=== PATIENT | female | born 1950 | race Caucasian/White ===

== ENCOUNTER 2017-11-29 07:15 | Inpatient (IN) | payer MEDICARE, OTHER ==
[~2017-11-29] VITALS: Ht 170.2 cm; Wt 165.1 kg
[2017-11-29 07:15] VITALS: BP 111/58
[2017-11-29 08:15] LABS: ABSOLUTE BASOPHILS 0.1 thou/uL (0.0-0.2); ABSOLUTE EOSINOPHILS 0.1 thou/uL (0.0-0.7); ABSOLUTE LYMPHOCYTES 6.7 thou/uL (0.8-5.3); ABSOLUTE MONOCYTES 1.8 thou/uL (0.0-1.2); ABSOLUTE NEUTROPHILS 4.7 thou/uL (1.6-8.1); BASOPHILS 0.8 %; EOSINOPHILS 0.9 %; HEMATOCRIT 39.9 % (37.0-47.0); HEMOGLOBIN 12.8 gm/dL (12.0-15.0); LYMPHOCYTES 50.2 %; MCH 31.6 pg (26.0-34.0); MCHC 32.1 g/dL (28.0-37.0); MCV 98.4 fL (80.0-100.0); MONOCYTES 13.1 %; MPV 10.2 fl. (7.2-11.1); NUCLEATED RBCS 0 /100WBC; PLATELET COUNT* 292 thou/uL (150-400); RBC 4.06 mil/uL (4.20-5.00); RDW-CV 14.9 % (10.5-14.5); WBC 13.4 thou/uL (4.0-11.0)
[2017-11-29 08:23] LABS: ANION GAP 3 mmol/L (7-16); BUN 11 mg/dL (7-18); CALCIUM 8.5 mg/dL (8.5-10.1); CHLORIDE 100 mmol/L (98-107); CO2 32 mmol/L (21-32); CREATININE 0.8 mg/dL (0.6-1.3); GLUCOSE 118 mg/dL (70-99); POTASSIUM 3.8 mmol/L (3.5-5.1); SODIUM 135 mmol/L (136-145)
[2017-11-29 08:35] LABS: ALBUMIN 2.8 g/dL (3.4-5.0); ALKALINE PHOSPHATASE 80 U/L (46-116); NT-PRO BRAIN NAT PEPTIDE 403 pg/mL (<300); SGOT 29 U/L (15-37); SGPT 20 U/L (30-65); TOTAL BILIRUBIN 0.2 mg/dL (<0.1-1.0); TOTAL PROTEIN 7.4 g/dL (6.4-8.2); TROPONIN-I LEVEL <0.06 ng/mL (<0.06)
--- NOTE | 2017-11-29 11:55 | EKG ---
[place] [address] ELECTROCARDIOGRAM REPORT Name: RUBI GILLIAM Room: [place] [address] ADM IN .R.#: [id number] Admission: 11/29/17 Attend Phys: Nikolai Paul MD Discharge: Date of : 54 Report #: [id number] THIS REPORT FOR: //name// [facility] ED Test Date: 2017-11-29 Test Time: 07:30:21 Pat Name: RUBI GILLIAM Department: Room: [facility] Gender: F Electrical Solderer: DUY : 1950 Requested By: Guillaume Brennan Order Number: [id number] MD: Lazarus Aparicio Measurements Intervals [place] Rate: 94 P: 42 MD: 204 QRS: -39 QRSD: 142 T: 86 QT: 388 QTc: 486 Interpretive Statements Sinus rhythm Left bundle branch block Baseline wander in lead(s) I,II,aVR,aVL No previous ECG available for comparison Electronically Signed On 11-29-2017 11:55:50 DATA ENTRY MACHINE OPERATOR by Lazarus Aparicio [email or web address] <ELECTRONICALLY SIGNED> By: Lazarus Aparicio MD, [facility] 11/29/17 1155 0730 Lazarus Aparicio MD, [facility] /EPI
[2017-11-29 12:00] VITALS: BP 106/44
[2017-11-29 13:25] VITALS: BP 115/42
[2017-11-29] MEDS ORDERED: VALIUM5 MG PO (15:48)
[2017-11-29] MEDS ORDERED: SYNTHROID100 MC1 PO (15:48)
[2017-11-29] MEDS ORDERED: SORINE 80 MG TA80 M1 PO (15:49)
[2017-11-29] MEDS ORDERED: NEURONTIN600 MG PO (15:49)
[2017-11-29] MEDS ORDERED: VERTICALM25 MG PO (15:49)
[2017-11-29] MEDS ORDERED: GLIPIZIDE ER2.5 MG PO (15:50)
[2017-11-29] MEDS ORDERED: LASIX 40 MG TAB40 M2 PO (15:50)
[2017-11-29] MEDS ORDERED: PROZAC20 MG PO (15:50)
[2017-11-29 16:13] LABS: HCO3 32.5 mmol/L (22.0-26.0); PO2 76.2 mmHg (75.0-100.0)
[2017-11-29 16:16] LABS: pH 7.297 (7.340-7.450)
[2017-11-29 16:17] LABS: PCO2 68.1 mmHg (35.0-45.0)
[2017-11-29 16:27] LABS: INFLUENZA A ANTIGEN None Detected (None Detect); INFLUENZA B ANTIGEN None Detected (None Detect)
[2017-11-30] VITALS: BP 106/58
[2017-11-30 04:46] LABS: ABSOLUTE LYMPHOCYTES 2.7 thou/uL (0.8-5.3); ABSOLUTE MONOCYTES 0.4 thou/uL (0.0-1.2); ABSOLUTE NEUTROPHILS 2.9 thou/uL (1.6-8.1); BASOPHILS 0.3 %; HEMATOCRIT 39.7 % (37.0-47.0); HEMOGLOBIN 12.5 gm/dL (12.0-15.0); LYMPHOCYTES 45.3 %; MCH 31.6 pg (26.0-34.0); MCHC 31.6 g/dL (28.0-37.0); MCV 100.1 fL (80.0-100.0); MONOCYTES 6.2 %; MPV 10.5 fl. (7.2-11.1); NUCLEATED RBCS 0 /100WBC; PLATELET COUNT* 283 thou/uL (150-400); POLYS 48.2 %; RBC 3.96 mil/uL (4.20-5.00); RDW-CV 15.1 % (10.5-14.5)
[2017-11-30 04:59] LABS: CALCIUM 8.7 mg/dL (8.5-10.1); CREATININE 0.8 mg/dL (0.6-1.3); POTASSIUM 4.6 mmol/L (3.5-5.1)
[2017-11-30 08:10] VITALS: BP 102/42
--- NOTE | 2017-11-30 11:08 | CON ---
[facility] [address] [place] [address] CONSULTATION Name: RUBI GILLIAM Radha Room: [address] IN M.R.#: [id number] Admission: 11/29/17 Attend Phys: Nikolai Paul MD Discharge: Date of : 54 Report #: [id number] THIS REPORT FOR: //name// CC: Nikolai Paul FAM unknown [facility] FAMCLI DATE OF SERVICE: 11/29/2017 REQUESTING PHYSICIAN: Nikolai Paul M.D. REASON FOR CONSULTATION: Chronic obstructive pulmonary disease exacerbation and infiltrates. DISCUSSION: The patient is a 67-year-old woman who has a history of underlying asthma/chronic obstructive pulmonary disease. She is a former smoker, quitting about 20 years ago. She is O2, though not steroid dependent. She became ill last weekend. Developed some upper airway congestion, notes she felt like she had a mild cold. Really was not too bad. Over the last couple of days she began getting more short of breath. She did try to tough it out. However, she got so bad she came to the Emergency Department this morning. She did require placement on BiPAP in the Emergency Department. She was subsequently transferred up to the floor. She was transitioned over to high flow nasal cannula. She has had her flu shot for the season. She has not seen a or director in a long time. She does have a nebulizer at home with albuterol. She is intermittent on how she uses that. She notes she has other inhalers at home, though she does not use any of them consistently. She cannot tell me what the names are. She denies being on montelukast. She also has a history of obstructive sleep apnea. She does have a CPAP that she sleeps with and bleeds in oxygen. She did not bring it to the hospital with her. She has had no prior history of thromboembolic disease. She does have a history of coronary artery disease, did have an myocardial infarction over 20 years ago. She believes she had angioplasty done. She had lived in this area, then lived out in [place] for quite some time. Several years ago she did relocate to this area. She has actually been getting most of her care at [facility]. She lives with a friend and does note that her friend and significant other had developed some upper airway congestion and some cough. Otherwise, she typically does not get out much and is not around the general public much. PAST MEDICAL HISTORY: Also remarkable for morbid obesity. She has had prior hysterectomy done for endometriosis. She has a history of asthma/chronic obstructive pulmonary disease, obstructive sleep apnea, morbid obesity, [place] [address] CONSULTATION Name: RUBI GILLIAM Radha Room: [address] IN ..#: [id number] Admission: 11/29/17 Attend Phys: Nikolai Paul MD Discharge: Date of : 54 Report #: [id number] disease (was told from a stress test done several years ago, but that was unremarkable). She has had bilateral total knee replacements. She does note on the left side, she had sustained a fall and also fractured her femur requiring a plate placed. That was done at . MEDICATIONS: At this time, cannot elicit exactly what her home medications are. The nurse will be calling the pharmacy to get an accurate rendition of those medications. SOCIAL HISTORY: Former smoker as noted. FAMILY HISTORY: Denies history of lung disease or thromboembolic disease. REVIEW OF SYSTEMS: No positives above. She is not physically very active. She does have issues with neuropathy in lower extremities. She has not had any nausea, vomiting or diarrhea. No skin rashes. No actual chest pain. Some cough. PHYSICAL EXAMINATION: GENERAL APPEARANCE: A morbidly obese woman. She is seen resting in bed on high flow nasal cannula. O2 saturations are in the 90s. She is alert, conversant, able to speak in full sentences. HEENT: Head is normocephalic and atraumatic. Sclerae are nonicteric. Mucous membranes look moist. NECK: Large, but negative for any definite adenopathy. HEART: Regular rate. Tones are distant. Does appear mildly tachycardic. No S3 is appreciated. LUNGS: Show breath sounds to be markedly diminished with a prolonged expiratory phase. Does have a few crackles heard. Few expiratory wheezes heard. ABDOMEN: Very obese, but soft. No hepatosplenomegaly is noted. EXTREMITIES: Do reveal 1-2+ edema. Healed scars over her knees bilaterally. She does have healing lesion seen, left pretibial area. Has some mild erythema noted pretibial areas bilaterally, left greater than right. Pulses are present, but diminished. SKIN: Warm and dry. Turgor is fair. NEUROLOGIC: She is alert and oriented x 3. Moving all extremities. LABORATORY AND X-RAY FINDINGS: On her chemistry, her sodium is 135, BUN 11, creatinine 0.8. Potassium is 3.8. ProBNP is 403. Troponins are unremarkable. Albumin 2.8. White blood cell count 13,400, hemoglobin 12.8, hematocrit 39.9, platelets were normal. No blood gases were done. Blood cultures have been sent. Chest x-ray was reviewed. She also had a CT angiogram done of her chest. Some of the views are degraded on the CT angiogram due to motion artifact and her size. No definite pulmonary emboli are seen. She does have mild bilateral [facility] [address] [place] [address] CONSULTATION Name: RUBI GILLIAM Room: [address] IN .R.#: [id number] Admission: 11/29/17 Attend Phys: Nikolai Paul MD Discharge: Date of : 54 Report #: [id number] infiltrates seen. No pleural effusions. Does not appear to have any definite masses noted. IMPRESSION: 1. Acute respiratory failure superimposed on chronic respiratory failure. She has been primarily hypoxic. 2. Interstitial infiltrates. Suspect may have a viral pneumonitis. Could also have an atypical pneumonia. 3. Asthma/chronic obstructive pulmonary disease exacerbation. 4. Morbid obesity. 5. Obstructive sleep apnea, is on CPAP and O2 at home. 6. History of coronary artery disease. RECOMMENDATIONS: 1. Need respiratory viral panel. 2. Continue IV steroids, neb treatments. 3. Agree with Rocephin and azithromycin. 4. We will also check urine for legionella and Strep pneumoniae antigen. 5. Repeat chest x-ray in several days. 6. She will continue to use her home CPAP if someone can bring it in. Otherwise, will utilize hospital BiPAP at night while sleeping and p.r.n. during the day, increased work of breathing. <ELECTRONICALLY SIGNED> By: Lei Woo MD 11/30/17 1108 1257 [id number] Mehta, /martinez
--- NOTE | 2017-11-30 15:29 | 2DMMODE ---
[place] [address] 2 D/M-MODE ECHOCARDIOGRAM Name: RONNIISATURUBI N Room: [address] IN [facility]#: [id number] Admission: 11/29/17 Attend Phys: Nikolai Paul, Discharge: Date of : 54 Date of Service: 11/30/17 1528 Report #: [id number] THIS REPORT FOR: //name// APPROVED REPORT Study performed: 11/30/2017 11:47:45 EXAM: Comprehensive 2D, Doppler, and color-flow Echocardiogram Patient Location: In-Patient Room #: 310 Status: routine BSA: 2.61 HR: 56 bpm BP: 106/58 mmHg Rhythm: NSR Other Information Study Quality: Good Indications Dyspnea Echo Enhancing Agent Indication: Endocardial border delineation Agent(s) / Amount(s) Used: Optison 3 cc 2D Dimensions LVEF(%): 64.36 (>50%) IVSd: 13.20 (7-11mm) LVOT Diam: 21.71 (18-24mm) LVDd: 52.56 mm PWd: 13.97 (7-11mm) Ascending Ao: 28.25 (22-36mm) LVDs: 33.97 (25-40mm) Aortic Root: 27.02 mm Gu's LVEF: 64.36 % Aortic Valve AoV Peak Malik.: 1.77 m/s AO Peak Gr.: 12.56 mmHg LVOT Max P.50 mmHg AO Mean Gr.: 7.96 mmHg LVOT Mean P.18 mmHg LVOT Max V: 1.37 m/s AO V2 VTI: 40.81 cm LVOT Mean V: 0.96 m/s JUDIE (VTI): 3.04 cm2 LVOT V1 VTI: 33.53 cm Mitral Valve E/A Ratio: 1.04 [place] [address] 2 D/M-MODE ECHOCARDIOGRAM Name: RUBI GILLIAM Room: [address]#: [id number] Admission: 11/29/17 Attend Phys: Nikolai Paul, Discharge: Date of : 54 Date of Service: 11/30/17 1528 Report #: [id number] MV Decel. Time: 248.63 ms MV E Max Malik.: 1.18 m/s MV PHT: 72.10 ms MVA (PHT): 3.05 cm2 TDI E/Lateral E': 13.11 E/Medial E': 13.11 Medial E' Malik.: 0.09 m/s Lateral E' Malik.: 0.09 m/s Pulmonary Valve PV Peak Malik.: 1.19 m/s PV Peak Gr.: 5.65 mmHg Tricuspid Valve TR Peak Gr.: 32.16 mmHg RVSP: 37.00 mmHg Left Ventricle The left ventricle is normal size. There is normal LV segmental wall motion. Mild concentric left ventricular hypertrophy. Left ventricular systolic function is normal. LVEF is 55-60%. Transmitral Doppler flow pattern suggests restrictive physiology. Right Ventricle The right ventricle is normal size. The right ventricular systolic function is normal. Atria The left atrium size is normal. The right atrium size is normal. Aortic Valve The aortic valve is normal in structure. No aortic regurgitation is present. There is no aortic valvular stenosis. Mitral Valve There is mitral annular calcification. Trace mitral regurgitation. No evidence of mitral valve stenosis. Tricuspid Valve The tricuspid valve is normal in structure. Trace tricuspid regurgitation. The RVSP is 50 mmHg. Pulmonic Valve The pulmonary valve is normal in structure. There is no pulmonic [place] [address] 2 D/M-MODE ECHOCARDIOGRAM Name: RUBI GILLIAM Room: [address] IN [facility]#: [id number] Admission: 11/29/17 Attend Phys: Nikolai Paul, Discharge: Date of : 54 Date of Service: 11/30/17 1528 Report #: [id number] Great Vessels The aortic root is normal in size. IVC is dilated and collapses <50% with inspiration. Pericardium There is no pericardial effusion. <Conclusion> The left ventricle is normal size. Mild concentric left ventricular hypertrophy. Left ventricular systolic function is normal. LVEF is 55-60%. Transmitral Doppler flow pattern suggests restrictive physiology. There is mitral annular calcification. Trace mitral regurgitation. Trace tricuspid regurgitation. The RVSP is 50 mmHg. IVC is dilated and collapses <50% with inspiration. <ELECTRONICALLY SIGNED> By: Rafal Lo MD, FACC 11/30/17 1528 1528 1528 Rafal Lo MD, FACC /INF
[2017-11-30 17:24] VITALS: BP 117/55
[2017-11-30 20:30] VITALS: BP 140/48
[2017-12-01 04:48] LABS: ABSOLUTE MONOCYTES 0.4 thou/uL (0.0-1.2); ABSOLUTE NEUTROPHILS 5.2 thou/uL (1.6-8.1); BASOPHILS 0.3 %; HEMATOCRIT 39.6 % (37.0-47.0); HEMOGLOBIN 12.5 gm/dL (12.0-15.0); LYMPHOCYTES 26.4 %; MCH 31.3 pg (26.0-34.0); MCHC 31.6 g/dL (28.0-37.0); MONOCYTES 4.8 %; MPV 10.4 fl. (7.2-11.1); NUCLEATED RBCS 0 /100WBC; PLATELET COUNT* 300 thou/uL (150-400); POLYS 68.5 %; WBC 7.5 thou/uL (4.0-11.0)
[2017-12-01 05:07] LABS: ALBUMIN 2.7 g/dL (3.4-5.0); CALCIUM 8.6 mg/dL (8.5-10.1); CREATININE 0.9 mg/dL (0.6-1.3); POTASSIUM 4.1 mmol/L (3.5-5.1); TOTAL BILIRUBIN 0.2 mg/dL (<0.1-1.0); TOTAL PROTEIN 7.2 g/dL (6.4-8.2)
[2017-12-01 08:13] VITALS: BP 121/57
[2017-12-01 15:40] VITALS: BP 124/71
[2017-12-01 20:50] VITALS: BP 109/65
[2017-12-02 04:43] LABS: ABSOLUTE LYMPHOCYTES 1.9 thou/uL (0.8-5.3); ABSOLUTE MONOCYTES 0.5 thou/uL (0.0-1.2); BASOPHILS 0.1 %; HEMATOCRIT 39.7 % (37.0-47.0); HEMOGLOBIN 12.7 gm/dL (12.0-15.0); LYMPHOCYTES 25.4 %; MCH 31.7 pg (26.0-34.0); MCHC 32.1 g/dL (28.0-37.0); MCV 98.8 fL (80.0-100.0); MONOCYTES 6.6 %; MPV 10.5 fl. (7.2-11.1); NUCLEATED RBCS 0 /100WBC; PLATELET COUNT* 307 thou/uL (150-400); POLYS 67.9 %; RBC 4.02 mil/uL (4.20-5.00); RDW-CV 14.9 % (10.5-14.5); WBC 7.4 thou/uL (4.0-11.0)
[2017-12-02 05:02] LABS: PREALBUMIN 20.7 mg/dL (18.0-35.7)
[2017-12-02 05:07] LABS: ALBUMIN 2.7 g/dL (3.4-5.0); CALCIUM 8.2 mg/dL (8.5-10.1); CREATININE 0.9 mg/dL (0.6-1.3); POTASSIUM 3.9 mmol/L (3.5-5.1); TOTAL BILIRUBIN 0.3 mg/dL (<0.1-1.0)
[2017-12-02 07:35] VITALS: BP 126/45
[2017-12-02 19:00] VITALS: BP 148/84
[2017-12-02 20:10] VITALS: BP 112/40
[2017-12-03 02:06] LABS: ADENOVIRUS Negative (Negative); INFLUENZA A Positive (Negative); INFLUENZA B Negative (Negative); METAPNEUMOVIRUS Negative (Negative); PARAINFLUENZA 1 Negative (Negative); PARAINFLUENZA 2 Negative (Negative); PARAINFLUENZA 3 Negative (Negative); RHINOVIRUS Negative (Negative); RSV A Negative (Negative); RSV B Negative (Negative)
[2017-12-03 04:20] LABS: CALCIUM 8.3 mg/dL (8.5-10.1); CREATININE 0.8 mg/dL (0.6-1.3); POTASSIUM 3.7 mmol/L (3.5-5.1)
[2017-12-03 07:35] VITALS: BP 142/68
[2017-12-03 17:00] VITALS: BP 129/43
[2017-12-04] VITALS: BP 89/35
[2017-12-04 04:00] VITALS: BP 118/42
[2017-12-04 04:42] LABS: ANION GAP < 0 mmol/L (7-16); BUN 24 mg/dL (7-18); CALCIUM 8.5 mg/dL (8.5-10.1); CHLORIDE 102 mmol/L (98-107); CO2 41 mmol/L (21-32); CREATININE 0.9 mg/dL (0.6-1.3); GLUCOSE 169 mg/dL (70-99); POTASSIUM 4.5 mmol/L (3.5-5.1); SODIUM 141 mmol/L (136-145)
[2017-12-04 05:08] LABS: ANION GAP < 0 mmol/L (7-16); BUN 24 mg/dL (7-18); CALCIUM 8.5 mg/dL (8.5-10.1); CHLORIDE 102 mmol/L (98-107); CO2 41 mmol/L (21-32); CREATININE 0.9 mg/dL (0.6-1.3); GLUCOSE 169 mg/dL (70-99); POTASSIUM 4.5 mmol/L (3.5-5.1); SODIUM 141 mmol/L (136-145)
[2017-12-04 10:42] VITALS: BP 117/54
[2017-12-04 16:00] VITALS: BP 108/30
[2017-12-04 20:00] VITALS: BP 105/54
[2017-12-05 04:50] LABS: ALBUMIN 2.5 g/dL (3.4-5.0); ALKALINE PHOSPHATASE 56 U/L (46-116); ANION GAP < 0 mmol/L (7-16); BUN 28 mg/dL (7-18); CALCIUM 8.6 mg/dL (8.5-10.1); CHLORIDE 98 mmol/L (98-107); CO2 41 mmol/L (21-32); CREATININE 0.9 mg/dL (0.6-1.3); GLUCOSE 230 mg/dL (70-99); POTASSIUM 4.2 mmol/L (3.5-5.1); SGOT 24 U/L (15-37); SGPT 46 U/L (30-65); SODIUM 138 mmol/L (136-145); TOTAL BILIRUBIN 0.5 mg/dL (<0.1-1.0); TOTAL PROTEIN 6.4 g/dL (6.4-8.2)
[2017-12-05 04:59] LABS: ABSOLUTE LYMPHOCYTES 1.5 thou/uL (0.8-5.3); ABSOLUTE MONOCYTES 0.4 thou/uL (0.0-1.2); ABSOLUTE NEUTROPHILS 8.2 thou/uL (1.6-8.1); HEMATOCRIT 39.6 % (37.0-47.0); HEMOGLOBIN 12.7 gm/dL (12.0-15.0); MCHC 32.1 g/dL (28.0-37.0); MCV 96.9 fL (80.0-100.0); MONOCYTES 4.3 %; MPV 10.5 fl. (7.2-11.1); NUCLEATED RBCS 0 /100WBC; PLATELET COUNT* 361 thou/uL (150-400); POLYS 80.7 %; RBC 4.09 mil/uL (4.20-5.00); RDW-CV 13.9 % (10.5-14.5); WBC 10.2 thou/uL (4.0-11.0)
[2017-12-05 07:35] VITALS: BP 110/65
[2017-12-05 16:00] VITALS: BP 120/53
[2017-12-05 19:31] VITALS: BP 125/56
[2017-12-06 07:40] VITALS: BP 138/69
[2017-12-06] MEDS ORDERED: PROTONIX40 M1 PO (13:45)
[2017-12-06] MEDS ORDERED: PREDNISONE 10 M10 MG PO (13:47)
[2017-12-06 13:49] VITALS: BP 138/69
== END 2017-12-06 15:20 | disposition home health service (06) | DRG 177 ==
LOC: M.ERS 07:15 → M.3W 09:18 → M.TBA-ER 09:18 → M.3W 12:04
PROVIDERS: Emergency Medicine Emergency Medical Services; Internal Medicine; Internal Medicine Pulmonary Disease; Nurse Practitioner Family; ADMIT Internal Medicine
PROC: 5A09557 Assistance with Respiratory Ventilation, Greater than 96 Consecutive Hours, Continuous Positive Airway Pressure (ICD-10-PCS; principal; 2017-11-29)
PROC: B24BZZ4 Ultrasonography of Heart with Aorta, Transesophageal (ICD-10-PCS; 2017-11-30)
DX: J10.08 Influenza due to other identified influenza virus with other specified pneumonia (principal); J96.21 Acute and chronic respiratory failure with hypoxia; J15.6 Pneumonia due to other Gram-negative bacteria; R65.10 Systemic inflammatory response syndrome (SIRS) of non-infectious origin without acute organ dysfunction; Z68.43 Body mass index [BMI] 50.0-59.9, adult; E66.2 Morbid (severe) obesity with alveolar hypoventilation; J44.1 Chronic obstructive pulmonary disease with (acute) exacerbation; J44.0 Chronic obstructive pulmonary disease with (acute) lower respiratory infection; I50.9 Heart failure, unspecified; E11.9 Type 2 diabetes mellitus without complications; I25.10 Atherosclerotic heart disease of native coronary artery without angina pectoris; E03.9 Hypothyroidism, unspecified; Z96.653 Presence of artificial knee joint, bilateral; Z87.81 Personal history of (healed) traumatic fracture; Z91.81 History of falling; Z99.81 Dependence on supplemental oxygen; I25.2 Old myocardial infarction; Z87.891 Personal history of nicotine dependence; Z90.710 Acquired absence of both cervix and uterus; Z88.0 Allergy status to penicillin; Z88.5 Allergy status to narcotic agent; Z88.8 Allergy status to other drugs, medicaments and biological substances

== ENCOUNTER 2018-03-11 11:05 | Inpatient (IN) | payer MEDICARE, OTHER ==
[~2018-03-11] VITALS: Ht 160 cm; Wt 174.2 kg
[~2018-03-11 11:05] MED LIST: GLIPIZIDE ER2.5 MG PO; LASIX 40 MG TAB40 M2 PO; NEURONTIN600 MG PO; PREDNISONE 10 M10 MG PO; PROTONIX40 M1 PO; PROZAC20 MG PO; SORINE 80 MG TA80 M1 PO; SYNTHROID100 MC1 PO; VALIUM5 MG PO; VERTICALM25 MG PO
[2018-03-11 11:06] VITALS: BP 125/49
[2018-03-11 11:48] LABS: ABSOLUTE BASOPHILS 0.1 thou/uL (0.0-0.2); ABSOLUTE EOSINOPHILS 0.3 thou/uL (0.0-0.7); ABSOLUTE LYMPHOCYTES 4.5 thou/uL (0.8-5.3); ABSOLUTE MONOCYTES 0.9 thou/uL (0.0-1.2); ABSOLUTE NEUTROPHILS 5.3 thou/uL (1.6-8.1); BASOPHILS 0.8 %; EOSINOPHILS 2.5 %; HEMATOCRIT 40.5 % (37.0-47.0); HEMOGLOBIN 12.4 gm/dL (12.0-15.0); LYMPHOCYTES 40.7 %; MCH 31.3 pg (26.0-34.0); MCHC 30.7 g/dL (28.0-37.0); MCV 102.1 fL (80.0-100.0); MONOCYTES 8.4 %; MPV 10.2 fl. (7.2-11.1); NUCLEATED RBCS 0 /100WBC; PLATELET COUNT* 236 thou/uL (150-400); POLYS 47.6 %; RBC 3.97 mil/uL (4.20-5.00); RDW-CV 14.3 % (10.5-14.5); WBC 11.1 thou/uL (4.0-11.0)
[2018-03-11 11:57] LABS: CALCIUM 8.9 mg/dL (8.5-10.1); CREATININE 0.8 mg/dL (0.6-1.3); POTASSIUM 3.9 mmol/L (3.5-5.1)
[2018-03-11 12:12] LABS: ALBUMIN 2.9 g/dL (3.4-5.0); TOTAL BILIRUBIN 0.2 mg/dL (<0.1-1.0); TOTAL PROTEIN 7.3 g/dL (6.4-8.2)
[2018-03-11 14:08] VITALS: BP 93/42
[2018-03-11 14:30] VITALS: BP 130/65
[2018-03-11 15:55] VITALS: BP 121/51
--- NOTE | 2018-03-11 19:07 | NUR ---
HILARY RESTING IN BED. [facility] BEDSIDE COMMODE BUT WAS UNABLE TO TOLERATE PAPIN ASSOCIATED WITH STANDING. HILARY HAS CONTINUED TO UTILIZE BEDPAN. VITAL SIGNS STABLE AND PAIN WAS CONTROLLED WITH PO MEDICATION. HOURKY ROUNDING COMPLETED FOR PATIENT SAFETY.
[2018-03-11 20:00] VITALS: BP 136/64
[2018-03-11 23:52] VITALS: BP 110/42
[2018-03-12 04:22] VITALS: BP 140/53
--- NOTE | 2018-03-12 04:29 | NUR ---
ASSUMED PT CRAE AT 1930, PT IS A&OX4, PT IS TRACING NSR IWTH A 1DAVB ON THE MONTIOR, PT IS ON 2.5L NC. PT WEAR 2L NC AT HOME AND HAS A CPAP MACHINE AT HOME. PT DOES NOT HAVE ANYONE TO BRING UP HER CPAP MACHINE. SO SHE REQUESTED A BIPAP MACHINE. NOTIFIED. NEW ORDERS GIVEN. PT C/O PAIN THIS SHIFT, PRN PAIN MEDICATIONS GIVEN THIS SHIFT WITH RELIEF. PT HAS A WOUND TO HER LEFT GROIN, RIGHT UNDER HER PANNUS. PICTURE TAKEN AND PLACED IN THE CHART. WOUND CLEANED AND COVERED WITH ABD. PT HAS HAD 3 IV'S PALCED THIS SHIFT, DUE TO CONSTANT INFILTRATION. IV PRESENT IN LEFT FA AT THIS TIME. BED IN LOW PSOITION, CALL LIGHT IN REACH, BED ALARM ON, YELLOW ARM BAND AND SOCKS IN PLACE. HOURLY ROUNDING COMPLETED FOR PT SAFETY.
[2018-03-12 08:09] VITALS: BP 113/53
--- NOTE | 2018-03-12 10:09 | NUR ---
ASSUMED CARE OF PT THIS AM AROUND 0715- ECONOMIC HISTORIAN IN PLACE ORDERED, TRACING SR WITH 1ST DEGREE- UPON ASSESSMENT PT NOTED TO BE RESTING IN BED WATCHING TV- PT A&O X4- CONTINENT VS INCONTINENT OF BOWEL AND BLADDER, USING BEDPAN FOR ELIMINATION-BEDREST IN PLACE WITH Q 2HOUR TURNS- PT NOT COMPLIANT IN ALLOWING STAFF TO TURN INDICATED DESPITE EDUCATION GIVEN THIS SHIFT- DIMINSHED LUNG SOUNDS NOTED, RESP EVEN AND UN-LABORED- VSS, O2 SAT 93% ON 2.5L VA NC- DYSPNEA NOTED ON EXERTION-ABDOMEN [id number], BS X4 QUADS- LAST BM REPORTED 03/11/18-3+ BLE EDEMA NOTED WITH REDNESS TO RLE- LEFT PANNUS/HIP WITH REDNESS NOTED, INNER DRY IN PLACE TO PANNUS INDICATED- IV NOTED TO LEFT FA INTACT AND SL-BLOOD CULTURES REPORTED WITH NO GROWTH THIS AM- PRN HYDROCODONE GIVEN THIS AM AT 0732 FOR REPORTED 4/10 BACK/LEG PAIN- PT REPORTS MEDICATION TO BE EFFECTIVE AND NOTED TO BE SLEEPING WELL POST MEDICATION ADMINISTRATION- CALL LIGHT AND PERSONAL BELONGINGS WITH IN REACH- HOURLY ROUNDS IN PLACE R/T SAFETY/NEEDS- PT MAKES NEEDS KNOWN- ALL NEEDS MET AT THIS TIME-WCTM
[2018-03-12 11:38] VITALS: BP 101/37
--- NOTE | 2018-03-12 14:37 | NUR ---
WOUND NURSE: PATIENT SEEN FOR WOUND ASSESSMENT REGARDING 2 WOUNDS IN AND AROUND PUBIC AREA. SUPERIOR WOUND MEASURES 0.8 X 1.0 X 0.2 CM. PRESENTS A SHALLOW EROSION AND CONTAINS PALE BEIGE TISSUE IN THE WOUND BED. CONTAINS A SMALL TO MODERATE AMOUNT OF SEROUS DRAINAGE. PATIENT HAS A SECOND WOUND INFERIOR TO THE 1ST AND IT MEASURES 0.5 X 0.5 X 1.8 CM. THIS WOUND BED PRESENTS WITH RED, SLIGHTLY HYPERGRANULOMATOUS TISSUE AND BLEEDS EASILY. THERE IS A MODERATE AMOUNT OF SEROUSANGUINOUS DRAINAGE FROM THE WOUND. NEITHER WOUND CONTAINS REDNESS, WARMTH, OR INDURATION. PATIENT IS NOT COMPLAINING OF PAIN OR TENDERNESS AT TIME OF TIS ASSESSMENT. CONTACTED DR. RANDOLPH AND POT APPROVED AND THIS INCLUDES SURGERY CONSULT WITH DR. Tracey WERNER MD. WOUNDS WERE CLEANSED WITH SOAP AND WATER, RINSED WITH WATER, THEN PATTED DRY. APPLIED SKIN PREP TO INTACT PERIWOUND TISSUE AND PACKED INFERIOR WOUND WITH AQUACEL AG, THEN COVERED WITH BORDERED FOAM DRESSING. THIS WAS TOLERATED WELL BY THE PATIENT. PATIENT IS REPORTING THAT THESE WOUNDS ARE CHRONIC AND HAS BEEN AN ISSUE OFF AND ON FOR [address] WERNER WAS CONTACTED AND MADE AWARE OF CONSULT BY THIS NURSE.
[2018-03-12 15:40] VITALS: BP 109/40
--- NOTE | 2018-03-12 15:47 | NUR ---
Pt is A&O. Resides at home with a friend. States that she is normally independent, doesn't do much cooking and cleaning but able to bath and groom herself. Pt has a walker, electric wc, home o2 and cpap, provided through [facility]. Pt also has a hospital bed. Hx of [facility]. [facility] . Discussed disposition and possible need for SNF at ca, Pt stated "I really don't want to go skilled, but I know that I may need to, I want to wait and see what the Drs say. Pt's goal is to return home. Following for disposition.
--- NOTE | 2018-03-12 18:19 | NUR ---
PT CURRENTLY RESTING IN BED- CARDAIC MONITOR IN PLACE ORDERED, TRACING SR WITH 1ST DEGREE- IV TO LEFT FA INTACT AND SL- VANC TROUGH RESULTED AT 17 THIS SHIFT, IV VANC GIVEN PRESCIBED, NO ADVERSE REACTIONS TO NOTE- GOOD PO INTAKE NOTED WITH MEALS- BS MONITORED PRESCIBED, CONTROLLED PER ORAL MEDICATIONS- PT UP TO BED SIDE CHAIR PER LIFT THIS SHIFT- WN HERE TO ASSESS LEFT PANNUS FOLD, WITH AREA CLEANED AND DRESSED PER WN- WOUND CARE TREATMENT ORDERS UPDATED TO TAR WITH SURGICAL CONSULT INITIATED THIS SHIFT PER WN- PRN HYDROCODONE GIVEN THIS SHIFT X2, PT REPORTS MEDICATION TO BE EFFECTIVE- PT PARTICIPATING WITH THERAPIES PRESCIBED- CALL LIGHT AND PERSONAL BELONGINGS WITH IN REACH- ALL NEEDS MET AT THIS TIME-WCZAIRA
[2018-03-12 20:00] VITALS: BP 125/65
[2018-03-12 23:50] VITALS: BP 109/47
[2018-03-13 04:00] VITALS: BP 113/42
--- NOTE | 2018-03-13 06:30 | NUR ---
ASSUMED PATIENT CARE AT 1900. PATIENT ALERT AND ORIENTED TIMES FOUR. MINOR COMLAINTS OF PAIN AND DISCOMFORT NOTED. CONTROLLED WITH ORAL PAIN MEDICATION. CAN BE VERY NEEDY. ASSISST NEEDED FOR BED MOBILITY. IV PATENT TO MEICATION. HOURLY ROUNDING AN CONCRETE MIXING PLANT SUPERINTENDENT COMPLETED DOCUMENTED.
[2018-03-13 08:00] VITALS: BP 120/45
--- NOTE | 2018-03-13 10:00 | NUR ---
ASSUMED CARE OF PT AT 0730. PT RESTING IN BED WAITING FOR BREAKFAST. PT A&0X4, COMPLAINS OF PAIN TO RIGHT HIP AND LEFT CALF. TREATED WITH PRN HYDROCODONE WITH PARTIAL RELIEF. PT TRACING SR WITH FIRST DEGREE ON THE DRY CLEANING SUPERVISOR. PT ON 2L NC SAT 93%. PT DENIES ANY SHORTNESS OF BREATH. PT UP WITH MAX ASSIST AND LIFT. PT GOAL FOR TODAY IS TO WORK WITH PT AND OT AND TO STAND AND PIVOT WITHOUT LIFT. CELLULITIS NOTED TO BILATERAL LE'S, WOUNDS NOTED TO PANUS. AM ASSESSMENT CHARTED. MEDICATIONS PER JAN. PT REPOSITIONED EVERY 2 HOURS FOR COMFORT. HOURLY ROUNDING OBSERVED. BED IN LOW POSITION. BED ALARM IN PLACE. FALL PRECAUTIONS IN PLACE. CALL LIGHT WITHIN REACH. WILL CONTINUE PLAN OF CARE.
--- NOTE | 2018-03-13 12:07 | NUR ---
Nutrition: Pt seen for pannus ulcers. Admitted with hip pain and cellulitis. Wt: 384#. 2gm Na and CHO controlle ddiet. Pt doesn't like the CHO control on her diet, and states she can control her own CHOs. She stated the Dr said she can change her menu. Per RN, no note that Dr agreed to this. Offered pt Arginaid for wound healing; she refused supplement. She is tolerating diet, eating 100%. H/o OBE, DM, COPD. BG ok, albumin 2.9. We discussed importance of protein intake for wound healing. Consider Mild risk.
[2018-03-13 12:27] VITALS: BP 105/55
--- NOTE | 2018-03-13 15:35 | NUR ---
MET WITH PT TO DISCUSS SNF OPTIONS. SHE WAS NOT FAMILIAR WITH [facility] FACILITIES. DISCUSSED AND ASSISTED HER WITH MEDICARE.GOV RATINGS. SHE CHOSE TO HAVE [facility] AND IF THEY WEREN'T AN OPTION, THEN [facility]. CALLED AND FAXED REFERRAL TO [facility]. ANTICIPATE DC TOMORROW
[2018-03-13 15:55] LABS: ABSOLUTE BASOPHILS 0.1 thou/uL (0.0-0.2); ABSOLUTE EOSINOPHILS 0.4 thou/uL (0.0-0.7); ABSOLUTE LYMPHOCYTES 5.8 thou/uL (0.8-5.3); ABSOLUTE MONOCYTES 1.1 thou/uL (0.0-1.2); ABSOLUTE NEUTROPHILS 3.3 thou/uL (1.6-8.1); BASOPHILS 0.7 %; HEMATOCRIT 37.9 % (37.0-47.0); HEMOGLOBIN 11.9 gm/dL (12.0-15.0); LYMPHOCYTES 53.8 %; MCH 31.2 pg (26.0-34.0); MCHC 31.4 g/dL (28.0-37.0); MCV 99.5 fL (80.0-100.0); MONOCYTES 10.3 %; MPV 9.8 fl. (7.2-11.1); NUCLEATED RBCS 0 /100WBC; PLATELET COUNT* 296 thou/uL (150-400); POLYS 31.2 %; RDW-CV 13.7 % (10.5-14.5); WBC 10.7 thou/uL (4.0-11.0)
[2018-03-13 16:00] VITALS: BP 110/47
[2018-03-13 16:04] LABS: CALCIUM 8.5 mg/dL (8.5-10.1); CREATININE 0.9 mg/dL (0.6-1.3); POTASSIUM 4.1 mmol/L (3.5-5.1)
[2018-03-13 16:58] LABS: ESR (SEDRATE) 43 mm/hr (0-30)
--- NOTE | 2018-03-13 17:31 | NUR ---
NO ACUTE CHANGES THROUGHOUT SHIFT. REFER TO CHARTING. PT WORKED WITH OCCUPATIONAL THERAPY TODAY, TOLERATED WELL. PT WAS ABLE TO STAND AND PIVOT TO RECLINER FROM BED WITH THERAPY. PT THEN WAS SITTING IN RECLINER REQUESTING TO GET BACK IN BED VIA JOYA LIFT TO USE BEDPAN AND THEN BACK TO RECLINER VIA JOYA LIFT. PT ENCOURAGED BY THIS RN TO STAND AND PIVOT TO BSC. PT KEPT STATING SHE CAN'T DO IT. PT ENCOURAGED TO AT LEAST TRY. AFTER A LOT OF ENCOURAGEMENT, PT WILLING TO TRY TO STAND AND PIVOT TO BSC. PT ABLE TO WITH MAX ASSIST. PT SAT IN RECLINER FOR MOST OF DAY. PT INCONT OF URINE X1 IN RECLINER. REPOSITIONED IN RECLINER FOR COMFORT. PT COMPLAINED OF PAIN TO RIGHT HIP AND LEFT CALF THROUGHOUT SHIFT. TREATED WITH PRN HYDROCODONE, BENGAY AND LIDOCAINE PATCH WITH PARTIAL RELIEF. SURGERY HERE TO SEE PT AND STATED WANTS PT TO FOLLOW UP WITH THEM ON A MONDAY FOLLOWING WHENEVERY PT IS DISCHARGED. PT CONTINUES TO TRACE SR WITH FIRST DEGREE ON THE BUILDING MANAGER. ON 2L NC SAT UPPER 90'S. DENIES ANY SHORTNESS OF BREATH. PT SLOWLY PROGRESSING TOWARDS GOALS. PT WILL PROBABLY NEED INTERMEDIATE AT DISCHARGE. MEDICATIONS PER JAN. PT REPOSITIONED EVERY 2 HOURS FOR COMFORT. HOURLY ROUNDING OBSERVED. BED IN LOW POSITION. BED ALARM IN PLACE. FALL PRECAUTIONS IN PLACE. CALL LIGHT WITHIN REACH. WILL CONTINUE PLAN OF CARE.
[2018-03-13 20:00] VITALS: BP 111/39
[2018-03-13 23:34] VITALS: BP 100/44
[2018-03-14 03:56] VITALS: BP 111/52
--- NOTE | 2018-03-14 06:35 | NUR ---
PATIENT RESTING THROUGHOUT NIGHT. PAIN MEDS X 2 THIS SHIFT. ASSIST WITH TURNING EVERY 2 HOURS. EPISODES OF INCONT. KIRK CARE AFTER EA EPISODE. BIPAP AT NIGHT. O2 2 LITERS NC DURING DAY. NO SIGN OF DISTRESS. CONT. TO MONITOR. CONT. WITH PLAN OF CARE AT THIS TIME.
[2018-03-14 08:02] VITALS: BP 117/54
--- NOTE | 2018-03-14 10:34 | NUR ---
RECIEVED REPORT FROM DALI AND ASSUMED CARE OF PT @ 3405.PT IS A/O X4,VSS,TRACING SR ON MONITOR.LUNG SOUNDS ARE DIMINSHED WITH AUDIBLE WHEEZES.ON 2L O2 NC. BREATHING TREATMENT ORDER OBTAINED.LAST BM WAS 2 DAYS AGO.IV LEFT CHEST PATENT AND SALINE LOCKED.PT IS CALM AND COOPERATIVE WITH C/O PAIN IN HIP-MEDICATIONS GIVEN WITH RELIEF.PT IS UP MAX ASSIST WITH LIFT TO CHAIR.PT LEFT RESTING IN BED WITH CALL LIGHT AND FALL PRECUATIONS IN PLACE.WILL CONTINUE TO MONITOR.
[2018-03-14 11:50] VITALS: BP 100/42
--- NOTE | 2018-03-14 13:12 | NUR ---
Alissa here from [facility], they are able to accept Pt for skilled. Spoke with , anticipate that Pt will be ready to dc tomorrow. Spoke with Pt's friend, Mary, she will bring Pt's trilogy to the hospital to use at [facility] at dc.
[2018-03-14 16:00] VITALS: BP 108/57
--- NOTE | 2018-03-14 17:25 | NUR ---
VSS.CARDIAC MONITORING IN PLACE WITH NO CHANGES.PT REMAINS ON 2L O2 NC.PT PROGRESSING TOWARDS GOALS.PT PAIN WELL MANAGED BY PO MEDS.IV LEFT CHEST PATENT AND SALINE LOCKED.PT MANAGING 2GM SODIUM DIET WELL.PT INFORMED OF PLAN OF CARE AND COMMUNICATES UNDERSTANDING.PT REFUSED TO WORK WITH PHYSICAL THERAPY THIS SHIFT.HOURLY ROUNDING COMPLETED FOR PT SAFETY.CALL LIGHT AND FALL PRECAUTIONS IN PLACE.WILL CONTINUE TO MONITOR FOR DURATION OF SHIFT.
[2018-03-14 20:00] VITALS: BP 102/41
--- NOTE | 2018-03-14 23:00 | NUR ---
ALERT AND ORIENTED X 4, ASSIST WITH TURNING EVERY 2 HOURS. INCONT. OF URINE, KIRK CARE PROVIDED AFTER EACH EPISODE. DENIES COMPLAINTS OF PAIN OR DISCOMFORT AT THIS TIME. ON BIPAP DURING NIGHT. 02 2L DURING DAY. BED IN LOW POSITION, CALL LIGHT IN REACH, WILL CONT. WITH PLAN OF CARE AT THIS TIME.
[2018-03-15] VITALS: BP 97/40
[2018-03-15 04:00] VITALS: BP 127/60
[2018-03-15 07:47] VITALS: BP 106/47
--- NOTE | 2018-03-15 08:36 | NUR ---
RECEIEVED REPORT FROM DALI AND ASSUMED CARE OF PT @ 3880.PT IS A/O X4,VSS,TRACING SR 1ST DEGREE ON MONITOR.LUNG SOUNDS ARE CLEAR DIMINSHED ON 2L O2 NC.NO BM IN LAST COUPLE OF DAYS BUT TAKING MIRALAX 4X DAILY.IV LEFT CHEST PATENT AND SALINE LOCKED.PT IS CALM AND COOPERATIVE WITH C/O GENERALIZED PAIN.PT IS UP WITH ONE TO TWO ASSIST TO CHAIR AND BSC.PT LEFT RESTING IN BED WITH CALL LIGHT AND FALL PRECAUTIONS IN PLACE.WILL CONTINUE TO MONITOR.
--- NOTE | 2018-03-15 10:01 | NUR ---
Pt to dc to [facility] skilled today, facility to parts picker at 2pm. Faxed dc orders. Chart copied. Nurse report number provided, [phone]. Pt's friend, Mary, to bring Pt's trilogy to hospital prior to dc. Updated Pt and nurse of disposition.
[2018-03-15 12:01] VITALS: BP 111/36
[2018-03-15] MEDS ORDERED: DOXYCYCLINE 10100 MG PO (13:26)
[2018-03-15] MEDS ORDERED: HYDROCODONE-AP1 EAC6 PO (13:27)
[2018-03-15] MEDS ORDERED: LIDODERM1 EACH TRANSDERM (13:29)
[2018-03-15] MEDS ORDERED: OMEPRAZOLE 20 M20 M1 PO (13:31)
[2018-03-15 13:35] VITALS: BP 111/36
--- NOTE | 2018-03-15 14:19 | NUR ---
PT OK FOR DISCHARGE.PAPERWORK COMPLETED AND PUT IN DISCHARGE PACKET.PT TRANSFERRING TO [facility].REPORT CALLED AND GIVEN TO DANIELA.[facility] PICKED UP PT @ 4822.ALL PERSONAL BELONGINGS PACKED AND TAKEN WITH PT.HEART MONITOR REMOVED AND RETURNED TO NURSING STATION.IV REMOVED.
== END 2018-03-15 15:00 | DRG 603 ==
LOC: M.ERS 11:05 → M.TBA-ER 12:42 → M.2W 12:42
PROVIDERS: Internal Medicine; Nurse Practitioner Family; ADMIT Internal Medicine
PROC: 5A09357 Assistance with Respiratory Ventilation, Less than 24 Consecutive Hours, Continuous Positive Airway Pressure (ICD-10-PCS; principal; 2018-03-11)
PROC: 5A09357 Assistance with Respiratory Ventilation, Less than 24 Consecutive Hours, Continuous Positive Airway Pressure (ICD-10-PCS; 2018-03-12)
PROC: 5A09357 Assistance with Respiratory Ventilation, Less than 24 Consecutive Hours, Continuous Positive Airway Pressure (ICD-10-PCS; 2018-03-14)
PROC: 5A09357 Assistance with Respiratory Ventilation, Less than 24 Consecutive Hours, Continuous Positive Airway Pressure (ICD-10-PCS; 2018-03-15)
DX: L03.116 Cellulitis of left lower limb (principal); I50.32 Chronic diastolic (congestive) heart failure; Z68.44 Body mass index [BMI] 60.0-69.9, adult; M16.0 Bilateral primary osteoarthritis of hip; E66.01 Morbid (severe) obesity due to excess calories; E11.9 Type 2 diabetes mellitus without complications; J44.9 Chronic obstructive pulmonary disease, unspecified; F32.9 Major depressive disorder, single episode, unspecified; L98.499 Non-pressure chronic ulcer of skin of other sites with unspecified severity; E03.9 Hypothyroidism, unspecified; G47.33 Obstructive sleep apnea (adult) (pediatric); I25.10 Atherosclerotic heart disease of native coronary artery without angina pectoris; Z96.653 Presence of artificial knee joint, bilateral; Z88.6 Allergy status to analgesic agent; Z88.0 Allergy status to penicillin; Z87.891 Personal history of nicotine dependence

== ENCOUNTER → 2018-03-19 | Outpatient (CLI) | payer MEDICARE, OTHER ==
[~2018-03-19] MED LIST changes: +AZITHROMYCIN 2250 MG PO; +BETAPACE80 MG PO; +CEFDINIR300 MG PO; +CENTRUM SILVER1 EAC4 PO; +CLARITIN10 MG PO; +DOXYCYCLINE 10100 MG PO; +DUONEB 2.5-0.5 M3 ML INH; +HYDROCODONE-AP1 EAC6 PO; +JUVEN PACKET1 EAC1 PO; +LIDODERM1 EACH TRANSDERM; +MELATONIN5 M1 PO; +NYSTATIN1 EA10 TOP; +OMEPRAZOLE 20 M20 M1 PO; +PREDNISONE 10 M10 M1 PO; +XARELTO20 MG PO
== END ==
LOC: M.WC 10:00
DX: E11.622 Type 2 diabetes mellitus with other skin ulcer (principal); L89.893 Pressure ulcer of other site, stage 3; L98.491 Non-pressure chronic ulcer of skin of other sites limited to breakdown of skin; I50.9 Heart failure, unspecified; I25.10 Atherosclerotic heart disease of native coronary artery without angina pectoris; E03.9 Hypothyroidism, unspecified; E66.01 Morbid (severe) obesity due to excess calories; G47.30 Sleep apnea, unspecified; J44.9 Chronic obstructive pulmonary disease, unspecified; F32.9 Major depressive disorder, single episode, unspecified; F41.9 Anxiety disorder, unspecified; Z90.710 Acquired absence of both cervix and uterus; Z68.44 Body mass index [BMI] 60.0-69.9, adult; Z96.653 Presence of artificial knee joint, bilateral; Z87.891 Personal history of nicotine dependence

== ENCOUNTER 2018-04-05 03:56 | Inpatient (IN) | payer MEDICARE, OTHER ==
[~2018-04-05] VITALS: Ht 160 cm; Wt 166.9 kg
[~2018-04-05 03:56] MED LIST changes: -AZITHROMYCIN 2250 MG PO; -BETAPACE80 MG PO; -CEFDINIR300 MG PO; -CENTRUM SILVER1 EAC4 PO; -CLARITIN10 MG PO; -DUONEB 2.5-0.5 M3 ML INH; -JUVEN PACKET1 EAC1 PO; -MELATONIN5 M1 PO; -NYSTATIN1 EA10 TOP; -PREDNISONE 10 M10 M1 PO; -XARELTO20 MG PO
[2018-04-05 03:57] VITALS: BP 106/66
[2018-04-05] MEDS ORDERED: CENTRUM SILVER1 EAC4 PO (04:36)
[2018-04-05] MEDS ORDERED: JUVEN PACKET1 EAC1 PO (04:37)
[2018-04-05] MEDS ORDERED: CLARITIN10 MG PO (04:38)
[2018-04-05] MEDS ORDERED: DUONEB 2.5-0.5 M3 ML INH (04:38)
[2018-04-05 05:15] LABS: ALBUMIN 2.4 g/dL (3.4-5.0); ALKALINE PHOSPHATASE 97 U/L (46-116); ANION GAP 1 mmol/L (7-16); BUN 1 mg/dL (7-18); CALCIUM 9.2 mg/dL (8.5-10.1); CHLORIDE 100 mmol/L (98-107); CO2 35 mmol/L (21-32); CREATININE 0.6 mg/dL (0.6-1.3); GLUCOSE 112 mg/dL (70-99); NT-PRO BRAIN NAT PEPTIDE 301 pg/mL (<300); POTASSIUM 4.8 mmol/L (3.5-5.1); SGOT 31 U/L (15-37); SODIUM 136 mmol/L (136-145); TOTAL BILIRUBIN 0.5 mg/dL (<0.1-1.0); TOTAL PROTEIN 7.6 g/dL (6.4-8.2); TROPONIN-I LEVEL <0.06 ng/mL (<0.06)
[2018-04-05 05:16] LABS: SGPT < 6 U/L (30-65)
[2018-04-05 06:00] LABS: ABSOLUTE BASOPHILS 0.1 thou/uL (0.0-0.2); ABSOLUTE EOSINOPHILS 0.4 thou/uL (0.0-0.7); ABSOLUTE LYMPHOCYTES 5.8 thou/uL (0.8-5.3); ABSOLUTE MONOCYTES 0.8 thou/uL (0.0-1.2); ABSOLUTE NEUTROPHILS 3.7 thou/uL (1.6-8.1); BASOPHILS 0.5 %; EOSINOPHILS 3.6 %; HEMATOCRIT 40.9 % (37.0-47.0); HEMOGLOBIN 12.6 gm/dL (12.0-15.0); LYMPHOCYTES 53.9 %; MCHC 30.8 g/dL (28.0-37.0); MCV 100.5 fL (80.0-100.0); MONOCYTES 7.8 %; MPV 10.7 fl. (7.2-11.1); NUCLEATED RBCS 0 /100WBC; PLATELET COUNT* 243 thou/uL (150-400); POLYS 34.2 %; RBC 4.06 mil/uL (4.20-5.00); RDW-CV 13.9 % (10.5-14.5); WBC 10.8 thou/uL (4.0-11.0)
[2018-04-05 07:51] VITALS: BP 119/45
[2018-04-05 08:46] VITALS: BP 120/61
[2018-04-05 09:14] LABS: HCO3 51.5 mmol/L (22.0-26.0); PCO2 121.5 mmHg (35.0-45.0); PO2 56.8 mmHg (75.0-100.0); pH 7.245 (7.340-7.450)
[2018-04-05 10:34] LABS: BE 17.1 mmol/L (-2 to +3); PO2 68.8 mmHg (75.0-100.0)
[2018-04-05 10:51] LABS: HCO3 50.1 mmol/L (22.0-26.0); PCO2 114.2 mmHg (35.0-45.0)
--- NOTE | 2018-04-05 10:53 | EKG ---
[place] [address] ELECTROCARDIOGRAM REPORT Name: RUBI GILLIAM Room: [address] IN .R.#: [id number] Admission: 04/05/18 Attend Phys: Pawan Begum MD Discharge: Date of : 54 Report #: [id number] THIS REPORT FOR: //name// [facility] ED Test Date: 2018-04-05 Test Time: 04:04:01 Pat Name: RUBI GILLIAM Department: Room: Gender: F [employer] Coordinator: CRISTÓBAL Mason : 1950 Requested By: Guillaume Brennan Order Number: [id number] MD: Lazarus Aparicio Measurements Intervals [place] Rate: 73 P: [place]: QRS: -36 QRSD: 144 T: 83 QT: 449 QTc: 495 Interpretive Statements sinus rhythm LBBB Baseline wander in lead(s) I,II,aVR Compared to ECG 11/29/2017 07:30:21 first degree AV block no longer seen Electronically Signed On 04-05-2018 10:53:28 CDT by Lazarus Aparicio [email or web address] <ELECTRONICALLY SIGNED> By: Lazarus Aparicio MD, [facility] 04/05/18 1053 0404 [id number] Lazarus Aparicio MD, [facility] /EPI
[2018-04-05 11:30] VITALS: BP 114/51
--- NOTE | 2018-04-05 15:33 | 2DMMODE ---
[place] [address] 2 D/M-MODE ECHOCARDIOGRAM Name: RUBI GILLIAM Radha Room: [address] IN .R.#: [id number] Admission: 04/05/18 Attend Phys: Pawan Begum, Discharge: Date of : 54 Date of Service: 04/05/18 1532 Report #: [id number] THIS REPORT FOR: //name// APPROVED REPORT Study performed: 04/05/2018 14:28:43 EXAM: Comprehensive 2D, Doppler, and color-flow Echocardiogram Patient Location: Bedside BSA: 2.52 HR: 62 bpm BP: 114/51 mmHg Other Information Study Quality: Adequate Technically limited study due to inability to position patient. Indications Dyspnea 2D Dimensions LVEF(%): 53.65 (>50%) IVSd: 11.92 (7-11mm) LVOT Diam: 21.21 (18-24mm) LVDd: 54.78 mm PWd: 11.13 (7-11mm) Ascending Ao: 30.27 (22-36mm) LVDs: 39.44 (25-40mm) Aortic Root: 30.18 mm Gu's LVEF: 53.65 % Volumes Left Atrial Volume (Systole) LA ESV Index: 26.90 mL/m2 Aortic Valve AoV Peak Malik.: 1.36 m/s AO Peak Gr.: 7.36 mmHg LVOT Max P.28 mmHg AO Mean Gr.: 4.14 mmHg LVOT Mean P.24 mmHg LVOT Max V: 0.75 m/s AO V2 VTI: 30.81 cm LVOT Mean V: 0.52 m/s JUDIE (VTI): 2.09 cm2 LVOT V1 VTI: 18.24 cm Mitral Valve E/A Ratio: 1.04 [place] [address] 2 D/M-MODE ECHOCARDIOGRAM Name: RONNIGUS LUNSFORDSTEVEN Garcia Room: [address] IN ..#: [id number] Admission: 04/05/18 Attend Phys: Pawan Begum, Discharge: Date of : 54 Date of Service: 04/05/18 1532 Report #: [id number] MV Decel. Time: 221.70 ms MV E Max Malik.: 0.80 m/s MV PHT: 64.29 ms MVA (PHT): 3.42 cm2 TDI E/Lateral E': 11.43 E/Medial E': 5.33 Medial E' Malik.: 0.15 m/s Lateral E' Malik.: 0.07 m/s Pulmonary Valve PV Peak Malik.: 1.16 m/s PV Peak Gr.: 5.35 mmHg Tricuspid Valve RAP Estimate: 20.00 mmHg TR Peak Gr.: 21.34 mmHg RVSP: 41.34 mmHg PA Pressure: 41.34 mmHg Left Ventricle The left ventricle is normal size. There is normal LV segmental wall motion. Mild concentric left ventricular hypertrophy. Left ventricular systolic function is normal. LVEF is 55-60%. Transmitral Doppler flow pattern suggests impaired LV relaxation. Right Ventricle The right ventricle is normal size. The right ventricular systolic function is normal. Atria Left atrium is mildly dilated. Right atrium is mildly dilated. Aortic Valve The aortic valve is normal in structure. No aortic regurgitation is present. There is no aortic valvular stenosis. Mitral Valve There is mitral annular calcification. Trace mitral regurgitation. No evidence of mitral valve stenosis. Tricuspid Valve The tricuspid valve is normal in structure. Trace tricuspid regurgitation. Pulmonic Valve The pulmonary valve is normal in structure. [place] [address] 2 D/M-MODE ECHOCARDIOGRAM Name: RUBI GILLIAM Room: [address]#: [id number] Admission: 04/05/18 Attend Phys: Pawan Begum, Discharge: Date of : 54 Date of Service: 04/05/18 1532 Report #: [id number] valvular regurgitation. Great Vessels The aortic root is normal in size. IVC is dilated and collapses <50% with inspiration. Pericardium There is no pericardial effusion. <Conclusion> The left ventricle is normal size. Mild concentric left ventricular hypertrophy. Left ventricular systolic function is normal. LVEF is 55-60%. Transmitral Doppler flow pattern suggests impaired LV relaxation. Left atrium is mildly dilated. Right atrium is mildly dilated. Trace tricuspid regurgitation. IVC is dilated and collapses <50% with inspiration. <ELECTRONICALLY SIGNED> By: Rafal Lo MD, FACC 04/05/18 [phone] Rafal Lo MD, FACC /INF
[2018-04-05 16:16] VITALS: BP 119/50
[2018-04-05 17:03] LABS: BE 15.5 mmol/L (-2 to +3); PO2 61.7 mmHg (75.0-100.0); pH 7.305 (7.340-7.450)
[2018-04-05 17:08] LABS: PCO2 95.7 mmHg (35.0-45.0)
[2018-04-05 17:09] LABS: HCO3 46.6 mmol/L (22.0-26.0)
[2018-04-05 20:00] VITALS: BP 104/36
[2018-04-06] VITALS (10 sets, daily range): BP systolic 93–142; BP diastolic 31–69
[2018-04-06 04:52] LABS: HEMATOCRIT 38.9 % (37.0-47.0); HEMOGLOBIN 12.1 gm/dL (12.0-15.0); MCV 99.9 fL (80.0-100.0); MPV 11.3 fl. (7.2-11.1); RBC 3.89 mil/uL (4.20-5.00); RDW-CV 13.8 % (10.5-14.5); WBC 8.7 thou/uL (4.0-11.0)
[2018-04-06 06:13] LABS: ANION GAP 3 mmol/L (7-16); BUN 22 mg/dL (7-18); CALCIUM 9.1 mg/dL (8.5-10.1); CHLORIDE 101 mmol/L (98-107); CHOLESTEROL 142 mg/dL (<200); CO2 40 mmol/L (21-32); CREATININE 0.7 mg/dL (0.6-1.3); GLUCOSE 102 mg/dL (70-99); HDL CHOLESTEROL 54 mg/dL (>40); LDL CHOLESTEROL 83 mg/dL (<100); MAGNESIUM 2.1 mg/dL (1.8-2.4); POTASSIUM 4.7 mmol/L (3.5-5.1); TC:HDL 2.6 Ratio (Not establshd); TRIGLYCERIDE 29 mg/dL (<150); VLDL 6 mg/dL (<40)
[2018-04-06 06:15] LABS: SODIUM 144 mmol/L (136-145)
[2018-04-06 06:38] LABS: SERUM ASSESSMENT Clear
--- NOTE | 2018-04-06 07:40 | CON ---
[address] [address] CONSULTATION Name: RUBI GILLIAM Room: [address] IN M.R.#: [id number] Admission: 04/05/18 Attend Phys: Pawan Begum MD Discharge: Date of : 54 Report #: [id number] THIS REPORT FOR: //name// CC: FAM physician/PCP Pawan Begum DATE OF SERVICE: 04/05/2018 REQUESTING PHYSICIAN: Panchito Goldberg MD. REASON FOR CONSULTATION: Acute on chronic respiratory failure, history of asthma and obstructive sleep apnea. DISCUSSION: The patient is a 68-year-old woman who is a nonsmoker. She is morbidly obese, has a known history of obstructive sleep apnea. She is supposed to be on CPAP. I believe she has been on that. More recently, has been in a [facility] facility. Over the last several days, she apparently has had increasing shortness of breath. O2 saturations were lower. She is chronically on supplemental O2. However, took additional breathing treatments. Was also placed back on her CPAP early, but O2 saturations remain low and she was brought to the Emergency Department. Unknown if she was having any significant fevers. The patient is really not able to participate much in the history. As she is fairly sleepy, though she is on the BiPAP, but is arousable. Her sister is in the room. However, she does not visit her every day due to the distance from her home. Was evaluated in the Emergency Department. Was noted to be very hypercapnic. Was placed on BiPAP. Was not totally comfortable with that and was subsequently transitioned over to AVAPS by the respiratory therapist. At that time, she was transitioned up to the room, she was on that. FiO2, however, was still 80%. Follow up blood gases revealed just a mild drop in her pCO2. Our group has seen her previously and that was back in November of this year. At that time, she was hospitalized with pneumonia, thought to be viral. Had hypercapnia noted at that time. She has a history of morbid obesity. Has obstructive sleep apnea as noted. She is on CPAP. Her sister believes she had been compliant with it as well, but notes earlier in the week when she was visiting, had made a comment that she needed a new mask that would fit her better. Has a history of heart disease and had angioplasty or stents 10 years ago when [place]. She has had bilateral total knee replacements. Had femur fracture requiring plate placed on the left side. More recently, has also had a left groin wound, swelling and cellulitis of her left lower extremity. No prior history of thromboembolic disease. [place] [address] CONSULTATION Name: MANERUBI N Room: [address] IN [facility]#: [id number] Admission: 04/05/18 Attend Phys: Pawan Begum MD Discharge: Date of : 54 Report #: [id number] MEDICATIONS: Per record, her medications at the skilled facility has been levothyroxine, doxycycline, omeprazole, multivitamins, DuoNeb q.i.d., loratadine, p.r.n. hydrocodone, Lidoderm patch, diazepam at bedtime, meclizine, gabapentin, sotalol, Lasix, glipizide, and fluoxetine. SOCIAL HISTORY: Currently is in a skilled facility. She is a former smoker, quitting greater than 20 years ago. FAMILY HISTORY: Negative for lung disease and thromboembolic disease. REVIEW OF SYSTEMS: Unable to obtain with any reliability from the patient. PHYSICAL EXAMINATION: GENERAL APPEARANCE: Morbidly obese woman. She is on BiPAP (AVAPS) with FiO2 at 80%. She is arousable. Denies shortness of breath. She does acknowledge pain in the left groin area. No chest pain. She is morbidly obese. HEENT: Head is normocephalic. Sclerae appear nonicteric. Mucous membranes look dry. NECK: Large without any definite adenopathy. HEART: Tones are distant, but appear regular. LUNGS: Sounds are coarse. She has a few rhonchi and expiratory wheezes heard bilaterally. Tones are markedly diminished. ABDOMEN: Very obese, but soft. Does not appear to have any definite hepatosplenomegaly noted. EXTREMITIES: She does have edema noted to lower extremities. Little more prominent on the left relative to the right. Calf do not appear tender. LABORATORY DATA: Arterial blood gases done initially this morning, she had a pH of 7.25, pCO2 of 122, pO2 of 57, bicarb of 51 with a saturation of 87%. That was on 10 liters high-flow nasal cannula. Once she was placed on the AVAPS, pH 7.26, pCO2 of 114, pO2 of 69, bicarb of 50 with a saturation of 91%. In November when she was here, she did have a blood gas done that was on high-flow nasal cannula. At that time, she had a pH of 7.297, pCO2 of 68, pO2 76 with a bicarbonate of 33. Chemistry: Serum bicarbonate is 35, BUN of 1, creatinine of 0.6, glucose 143, albumin 2.4. ProBNP 301. TSH in November was normal. Troponins unremarkable. White blood cell count 10,800, hemoglobin 12.6, hematocrit 40.9, platelets are normal. No cultures this admission. Portable chest film done early this morning suggests some cardiomegaly. Pulmonary vascular congestion. May have some edema versus infiltrates. Does not appear to have any definite pleural effusions, but portable study given her large body habitus, it is difficult. She did have venous Dopplers done beginning of the month. DVT was noted at that time. Echocardiogram done in November revealed preserved systolic function with an EF of 55-60%. Did have restrictive physiology. She had LVH noted. RV was normal. No significant [place] [address] CONSULTATION Name: RONNIRUBI LUNSFORD Radha Room: [address] IN ..#: [id number] Admission: 04/05/18 Attend Phys: Pawan Begum MD Discharge: Date of : 54 Report #: [id number] IMPRESSION: 1. Acute respiratory failure superimposed on chronic respiratory failure. Baseline, she does have a history of asthma as well as obstructive sleep apnea. Reportedly, has been compliant with her CPAP. However, I suspect she has significant component of obesity hypoventilation syndrome and the CPAP would not be addressing that. Prison may be a candidate for BiPAP or noninvasive ventilation better attempts to ensure adequate inconsistent tidal volumes. 2. Altered level of consciousness secondary to above. 3. Morbid obesity. 4. History of asthma. 5. Edema. 6. Recent history of groin wound and cellulitis. RECOMMENDATIONS: 1. Neb treatments every 4 hours. 2. IV Solu-Medrol. 3. Continue on AVAPS. We will try and leave her on most of the time and followup blood gases. 4. Discussed with her sister at the bedside. Do note that she is a full code. Did discuss with the patient's sister that if her condition would not improve or deteriorate, transfer to the Intensive Care Unit may be needed. There is also a possibility intubation may be required. 5. We will also cover with antibiotics. 6. Overall appears her long-term prognosis is certainly guarded. Unfortunately with her markedly morbid obesity, options are certainly limited. She would be a poor ventilator candidate. <ELECTRONICALLY SIGNED> By: Shereen Mehta MD 04/06/18 0740 1432 2031Shereen Mehta MD /nt
[2018-04-06 10:16] LABS: BE 17.9 mmol/L (-2 to +3); PO2 69.2 mmHg (75.0-100.0)
[2018-04-06 10:26] LABS: PCO2 123.1 mmHg (35.0-45.0); pH 7.235 (7.340-7.450)
--- NOTE | 2018-04-06 10:32 | CON ---
[address] [address] CONSULTATION Name: RUBI GILLIAM Radha Room: [address] IN .R.#: [id number] Admission: 04/05/18 Attend Phys: Pawan Begum MD Discharge: Date of : 54 Report #: [id number] THIS REPORT FOR: //name// CC: Jase Natarajan DO [facility] physician/PCP Pawan Begum INDICATION: Acute respiratory failure. HISTORY OF PRESENT ILLNESS: The patient is a 68-year-old white female who has lived in the area for the past 3 years with a history of nonocclusive coronary artery disease by catheterization remotely. She has a history of paroxysmal atrial fibrillation and is maintaining sinus rhythm on sotalol. She is not anticoagulated. She does not have a local warp dyeing vat tender. She was admitted to the emergency room with acute respiratory failure. Chest x-ray suggests congestive heart failure versus significant left lower lobe pneumonia. The patient's NT-proBNP is not significantly elevated. She has been having a cough that is nonproductive. She reports chest pain in the upper sternal area radiating to both shoulders. This has resolved. She is without other cardiac complaint at this time. She is on BiPAP, so history taking is difficult. Per review of the emergency room records, the patient does have COPD and heart failure and presented with 3 days of worsening shortness of breath. She was hypoxic on arrival. She had chest discomfort as well. PAST MEDICAL HISTORY: 1. Coronary artery disease, apparently nonocclusive by catheterization remotely. 2. COPD. 3. Type 2 diabetes mellitus. 4. Hypothyroidism. 5. Morbid obesity. 6. Obstructive sleep apnea. 7. History of left femur fracture in 2016. 8. Bilateral knee replacements. FAMILY HISTORY: Noncontributory. SOCIAL HISTORY: The patient quit smoking remotely. She drinks alcohol occasionally. ALLERGIES: PENICILLIN, CODEINE, and IBUPROFEN. HOME MEDICATIONS: Ramin packet 1 b.i.d., Valium mg at bedtime, doxycycline 100 mg b.i.d., Prozac 20 mg daily, furosemide 40 mg daily, gabapentin 600 mg t.i.d., glipizide ER 2.5 mg daily, hydrocodone/acetaminophen 5/325 q.4 hours p.r.n., DuoNeb inhaler q.i.d., Synthroid 200 mcg daily, [place] [address] CONSULTATION Name: RUBI GILLIAM Room: [address]#: [id number] Admission: 04/05/18 Attend Phys: Pawan Begum MD Discharge: Date of : 54 Report #: [id number] lidocaine transdermal patch as directed, Claritin 10 mg daily, meclizine 25 mg a half tablet b.i.d., multivitamin 1 tablet daily, omeprazole 20 mg daily, and sotalol 120 mg daily. PHYSICAL EXAMINATION: VITAL SIGNS: Blood pressure 120/61, pulse 71 and regular. GENERAL: This is a morbidly obese, pleasant white female, in no distress. She is on BiPAP. HEENT: Head is normocephalic, atraumatic. Extraocular muscles are intact. NECK: Thick. CHEST: Clear anteriorly, limited exam. CARDIAC: Very distant S1 and S2. I do not appreciate any obvious gallop or murmur. ABDOMEN: Protuberant, soft and nontender. EXTREMITIES: Without edema. Peripheral pulses palpable. SKIN: Warm and dry. A 12-lead EKG shows sinus rhythm with left bundle branch block. LABS: Reviewed. Electrolytes are within normal limits. BUN 1, creatinine 0.6, serum glucose 112. LFTs within normal limits. Troponin less than 0.06 today. NT-proBNP 301. White blood cell count 10.8, hemoglobin 12.6, platelet count 243,000. Chest x-ray reviewed. The film suggests pulmonary vascular congestion and/or significant left lower lobe infiltrate. IMPRESSION AND RECOMMENDATIONS: 1. Acute respiratory failure, multifactorial in nature. I believe the patient likely has an underlying pneumonia based on her x-ray. We would recommend IV antibiotics for this. She may have some element of heart failure, although her NT-proBNP is quite low for this. I do not believe that acute diuresis is necessary. We will give a single bolus of IV Lasix and follow clinically. 2. Coronary artery disease, presently appears stable, although she did have chest pain on arrival. I have requested outside records. We will get serial troponins. Echocardiogram ordered and pending. 3. Dyslipidemia. We will order fasting lipid profile. She is not currently on a statin agent. 4. Paroxysmal atrial fibrillation. Continue sotalol at current dose. We will need to obtain outside records to see if there is some contraindication to anticoagulation. 5. Diabetes, per primary physician. 6. Hypertension, adequately controlled presently. <ELECTRONICALLY SIGNED> By: Rafal Lo MD, FACC 04/06/18 1032 1054 1457Micnew Lo MD, FACC /nt
[2018-04-06 14:53] LABS: BE 19.5 mmol/L (-2 to +3); PO2 82.7 mmHg (75.0-100.0)
[2018-04-06 14:58] LABS: HCO3 52.6 mmol/L (22.0-26.0); PCO2 122.6 mmHg (35.0-45.0)
[2018-04-07] VITALS (10 sets, daily range): BP systolic 96–119; BP diastolic 18–58
[2018-04-07 01:35] LABS: BE 14.6 mmol/L (-2 to +3); pH 7.329 (7.340-7.450)
[2018-04-07 01:38] LABS: HCO3 44.4 mmol/L (22.0-26.0); PCO2 86.4 mmHg (35.0-45.0); PO2 42.3 mmHg (75.0-100.0)
[2018-04-07 01:53] LABS: HEMATOCRIT 39.2 % (37.0-47.0); MCH 30.5 pg (26.0-34.0); MCHC 30.5 g/dL (28.0-37.0); MCV 99.9 fL (80.0-100.0); MPV 10.7 fl. (7.2-11.1); RBC 3.93 mil/uL (4.20-5.00); WBC 9.7 thou/uL (4.0-11.0)
[2018-04-07 02:03] LABS: BE 17.7 mmol/L (-2 to +3); pH 7.357 (7.340-7.450)
[2018-04-07 02:03] LABS: INR 1.1; PROTIME 10.9 Seconds (9.20-11.50)
[2018-04-07 02:04] LABS: HCO3 47.4 mmol/L (22.0-26.0); PCO2 86.5 mmHg (35.0-45.0); PO2 56.6 mmHg (75.0-100.0)
[2018-04-07 02:08] LABS: MAGNESIUM 2.2 mg/dL (1.8-2.4); POTASSIUM 4.5 mmol/L (3.5-5.1); TROPONIN-I LEVEL <0.06 ng/mL (<0.06)
[2018-04-07 02:44] LABS: CHLORIDE 100 mmol/L (98-107); POTASSIUM 4.7 mmol/L (3.5-5.1); SODIUM 143 mmol/L (136-145)
[2018-04-07 02:46] LABS: ALBUMIN 2.8 g/dL (3.4-5.0); ALKALINE PHOSPHATASE 94 U/L (46-116); BUN 27 mg/dL (7-18); CALCIUM 9.5 mg/dL (8.5-10.1); CO2 > 45 mmol/L (21-32); CREATININE 0.8 mg/dL (0.6-1.3); GLUCOSE 138 mg/dL (70-99); SGOT 18 U/L (15-37); SGPT 17 U/L (30-65); TOTAL BILIRUBIN 0.3 mg/dL (<0.1-1.0); TOTAL PROTEIN 6.6 g/dL (6.4-8.2)
--- NOTE | 2018-04-07 11:31 | EKG ---
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 : 1950 Requested By: Lazarus Aparicio Order Number: [id number] Bora MD: Lazarus Aparicio Measurements Intervals [place] Rate: 49 P: 33 SC: 195 QRS: -40 QRSD: 142 T: 44 QT: 473 QTc: 428 Interpretive Statements Sinus bradycardia Left bundle branch block Baseline wander in lead(s) V3,V4 Compared to ECG 04/05/2018 04:04:01 Sinus rhythm no longer present Electronically Signed On 04-07-2018 11:31:22 CDT by Lazarus Aparicio [email or web address] <ELECTRONICALLY SIGNED> By: Lazarus Aparicio MD, [facility] 04/07/18 1131 0136 0136 Lazarus Aparicio MD, [facility] /EPI
[2018-04-07 14:11] LABS: BE 17.7 mmol/L (-2 to +3); pH 7.397 (7.340-7.450)
[2018-04-07 14:13] LABS: PCO2 77.1 mmHg (35.0-45.0); PO2 59.3 mmHg (75.0-100.0)
[2018-04-07 14:14] LABS: HCO3 46.4 mmol/L (22.0-26.0)
[2018-04-08] VITALS (19 sets, daily range): BP systolic 80–130; BP diastolic 26–90
[2018-04-08 04:36] LABS: HEMATOCRIT 36.8 % (37.0-47.0); HEMOGLOBIN 11.5 gm/dL (12.0-15.0); MCH 31.1 pg (26.0-34.0); MCHC 31.3 g/dL (28.0-37.0); MCV 99.4 fL (80.0-100.0); MPV 11.6 fl. (7.2-11.1); RBC 3.7 mil/uL (4.20-5.00); RDW-CV 13.6 % (10.5-14.5); WBC 9.9 thou/uL (4.0-11.0)
[2018-04-08 05:26] LABS: CREATININE 0.8 mg/dL (0.6-1.3); MAGNESIUM 2.1 mg/dL (1.8-2.4); POTASSIUM 4.6 mmol/L (3.5-5.1)
[2018-04-08 09:40] LABS: BE 14.5 mmol/L (-2 to +3); PO2 65.8 mmHg (75.0-100.0); pH 7.356 (7.340-7.450)
[2018-04-08 09:42] LABS: HCO3 43.7 mmol/L (22.0-26.0); PCO2 79.8 mmHg (35.0-45.0)
[2018-04-09] VITALS (9 sets, daily range): BP systolic 104–133; BP diastolic 40–65
[2018-04-09 04:08] LABS: HEMATOCRIT 38.6 % (37.0-47.0); HEMOGLOBIN 11.9 gm/dL (12.0-15.0); MCH 30.4 pg (26.0-34.0); MCHC 30.9 g/dL (28.0-37.0); MCV 98.4 fL (80.0-100.0); MPV 11.3 fl. (7.2-11.1); RBC 3.92 mil/uL (4.20-5.00); RDW-CV 13.5 % (10.5-14.5); WBC 11.8 thou/uL (4.0-11.0)
[2018-04-09 04:19] LABS: CALCIUM 8.7 mg/dL (8.5-10.1); CREATININE 0.8 mg/dL (0.6-1.3); MAGNESIUM 2.2 mg/dL (1.8-2.4); POTASSIUM 4.5 mmol/L (3.5-5.1)
[2018-04-09 11:01] LABS: BE 7.7 mmol/L (-2 to +3); HCO3 37.7 mmol/L (22.0-26.0)
[2018-04-09 11:04] LABS: BE 8.3 mmol/L (-2 to +3); HCO3 37.5 mmol/L (22.0-26.0); PO2 69.5 mmHg (75.0-100.0); pH 7.314 (7.340-7.450)
[2018-04-09 11:04] LABS: PO2 VENOUS 31.3 mmHg (35.0-45.0)
[2018-04-09 11:06] LABS: PCO2 75.4 mmHg (35.0-45.0)
--- NOTE | 2018-04-09 11:39 | EKG ---
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
--- NOTE | 2018-04-09 11:47 | EKG ---
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
[2018-04-10 04:02] VITALS: BP 108/50
[2018-04-10 08:00] VITALS: BP 118/52
[2018-04-10 11:40] VITALS: BP 110/49
[2018-04-10 16:00] VITALS: BP 139/58; BP 155/143
[2018-04-10 20:45] VITALS: BP 135/59
[2018-04-10 23:51] VITALS: BP 111/49
[2018-04-11 03:54] VITALS: BP 111/49
[2018-04-11 04:00] VITALS: BP 105/55
[2018-04-11 05:32] LABS: HEMATOCRIT 39.3 % (37.0-47.0); HEMOGLOBIN 12.3 gm/dL (12.0-15.0); MCH 30.8 pg (26.0-34.0); MCHC 31.3 g/dL (28.0-37.0); MCV 98.3 fL (80.0-100.0); MPV 11.7 fl. (7.2-11.1); RDW-CV 13.7 % (10.5-14.5); WBC 13.1 thou/uL (4.0-11.0)
[2018-04-11 05:50] LABS: ANION GAP 0 mmol/L (7-16); BUN 29 mg/dL (7-18); CALCIUM 8.9 mg/dL (8.5-10.1); CHLORIDE 105 mmol/L (98-107); CO2 36 mmol/L (21-32); CREATININE 0.7 mg/dL (0.6-1.3); GLUCOSE 184 mg/dL (70-99); MAGNESIUM 2.3 mg/dL (1.8-2.4); POTASSIUM 4.3 mmol/L (3.5-5.1); SODIUM 141 mmol/L (136-145); TROPONIN-I LEVEL <0.06 ng/mL (<0.06)
[2018-04-11 08:00] VITALS: BP 132/54
[2018-04-11 12:00] VITALS: BP 116/40
[2018-04-11 16:00] VITALS: BP 126/58
[2018-04-11 19:40] VITALS: BP 127/68
[2018-04-12] VITALS (8 sets, daily range): BP systolic 81–126; BP diastolic 39–66
[2018-04-12 04:55] LABS: HEMATOCRIT 41.5 % (37.0-47.0); HEMOGLOBIN 12.8 gm/dL (12.0-15.0); MCH 30.5 pg (26.0-34.0); MCHC 30.8 g/dL (28.0-37.0); MCV 99.2 fL (80.0-100.0); MPV 11.7 fl. (7.2-11.1); RBC 4.19 mil/uL (4.20-5.00); WBC 13.9 thou/uL (4.0-11.0)
[2018-04-12 05:10] LABS: CREATININE 0.6 mg/dL (0.6-1.3); MAGNESIUM 2.1 mg/dL (1.8-2.4); POTASSIUM 4.5 mmol/L (3.5-5.1)
[2018-04-12 05:25] LABS: BE 7.3 mmol/L (-2 to +3); HCO3 35.5 mmol/L (22.0-26.0); PO2 72.1 mmHg (75.0-100.0); pH 7.331 (7.340-7.450)
[2018-04-12 05:29] LABS: PCO2 68.8 mmHg (35.0-45.0)
[2018-04-12] MEDS ORDERED: MELATONIN5 M1 PO (09:55)
[2018-04-12] MEDS ORDERED: NYSTATIN1 EA10 TOP (09:57)
[2018-04-12] MEDS ORDERED: CEFDINIR300 MG PO (09:58)
[2018-04-12] MEDS ORDERED: PREDNISONE 10 M10 MG PO (10:00)
[2018-04-12] MEDS ORDERED: XARELTO20 MG PO (10:02)
[2018-04-12] MEDS ORDERED: AZITHROMYCIN 2250 MG PO (10:03)
[2018-04-13 03:30] VITALS: BP 119/61
[2018-04-13 11:30] VITALS: BP 132/66
[2018-04-13 11:38] VITALS: BP 132/66
[2018-04-13] MEDS ORDERED: BETAPACE80 MG PO (15:30)
[2018-04-13] MEDS ORDERED: PREDNISONE 10 M10 M1 PO (15:43)
[2018-04-13 15:49] VITALS: BP 124/62
[2018-04-13 16:00] VITALS: BP 133/54
--- NOTE | 2018-04-14 09:33 | EKG ---
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1950 Requested By: Ermias Chaudhari Order Number: [id number] Bora MD: Rafal Lo Measurements Intervals [place] Rate: 126 P: [place]: QRS: -49 QRSD: 133 T: 96 QT: 348 QTc: 504 Interpretive Statements Atrial fibrillation Left bundle branch block Compared to ECG 04/09/2018 09:52:26 Sinus rhythm no longer present Left-axis deviation no longer present Electronically Signed On 04-14-2018 9:33:02 CDT by Rafal Lo [email or web address] <ELECTRONICALLY SIGNED> By: Rafal Lo MD, [facility] 04/14/18 0933 Rafal Lo MD, [facility] /EPI
== END 2018-04-13 18:19 | DRG 177 ==
LOC: M.ERS 03:56 → M.2W 06:25 → M.TBA-ER 06:25 → M.2W 08:06 → M.ICU 04-06 12:00 → M.2W 04-09 16:44
PROVIDERS: Emergency Medicine Emergency Medical Services; Internal Medicine; Internal Medicine Cardiovascular Disease; Internal Medicine Pulmonary Disease; ADMIT Internal Medicine
PROC: 5A09557 Assistance with Respiratory Ventilation, Greater than 96 Consecutive Hours, Continuous Positive Airway Pressure (ICD-10-PCS; principal; 2018-04-05)
DX: J69.0 Pneumonitis due to inhalation of food and vomit (principal); G93.41 Metabolic encephalopathy; I50.33 Acute on chronic diastolic (congestive) heart failure; J96.21 Acute and chronic respiratory failure with hypoxia; J96.22 Acute and chronic respiratory failure with hypercapnia; J44.1 Chronic obstructive pulmonary disease with (acute) exacerbation; J44.0 Chronic obstructive pulmonary disease with (acute) lower respiratory infection; E66.2 Morbid (severe) obesity with alveolar hypoventilation; E87.4 Mixed disorder of acid-base balance; Z68.44 Body mass index [BMI] 60.0-69.9, adult; J84.9 Interstitial pulmonary disease, unspecified; I11.0 Hypertensive heart disease with heart failure; R53.81 Other malaise; K21.9 Gastro-esophageal reflux disease without esophagitis; E78.5 Hyperlipidemia, unspecified; E03.9 Hypothyroidism, unspecified; I25.10 Atherosclerotic heart disease of native coronary artery without angina pectoris; Z96.653 Presence of artificial knee joint, bilateral; I48.0 Paroxysmal atrial fibrillation; E11.9 Type 2 diabetes mellitus without complications; Z87.891 Personal history of nicotine dependence; Z99.81 Dependence on supplemental oxygen; Z95.5 Presence of coronary angioplasty implant and graft; Z88.6 Allergy status to analgesic agent; Z88.0 Allergy status to penicillin; Z90.710 Acquired absence of both cervix and uterus; Z98.84 Bariatric surgery status; Z79.2 Long term (current) use of antibiotics; Z79.899 Other long term (current) drug therapy